=== PATIENT | male | born 1950 | race Caucasian/White ===

== ENCOUNTER 2021-03-13 07:25 | Emergency (ER) | payer MEDICARE, MEDICAID ==
[~2021-03-13] VITALS: Ht 167.6 cm; Wt 84.1 kg
--- NOTE | 2021-03-13 07:49 | NUR ---
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 Ari will be picking it up today and stated that there is a chance other family members can go out to their house and curing pickling packer the concentrater from the home. Ari will call [facility] at [phone] and find out more details letting me know as soon as she has more information regarding her plan.
--- NOTE | 2021-03-13 09:30 | NUR ---
Patient's called regarding going to pick remover oxygen concentrater and that she would be coming over to the hospital after picking it up from [facility]. Notified her that we would be able to bring him out to her so that she did not have to come in to the ER.
--- NOTE | 2021-03-13 10:57 | NUR ---
Patients called back regarding ETA. Patient states that [facility] now does not have an oxygen concentrater for patient and she has been trying to get navin of the deputy sheriff lieutenant's office to see if she can go back to her home and get his. Electrical Troubleshooter contact regarding need to assist with oxygen need.
--- NOTE | 2021-03-13 11:36 | NUR ---
Patients , Ari, Called back stated that she had gotten a hold of the [facility] [place] office regarding need to get to home and they stated they would escort Ari out to her home to get patients oxygen. She stated then she would be coming back here to ER with curing pickling packer patient.
[2021-03-13 12:47] VITALS: BP 144/86
== END 2021-03-13 12:53 | disposition home or self-care (01) ==
LOC: ER 07:26
DX: R06.02 Shortness of breath (principal); R11.0 Nausea; F17.200 Nicotine dependence, unspecified, uncomplicated; F12.90 Cannabis use, unspecified, uncomplicated; J44.9 Chronic obstructive pulmonary disease, unspecified; Z76.0 Encounter for issue of repeat prescription
CPT/HCPCS: 99281; 99283